=== PATIENT | female | born 1960 | race Caucasian/White ===

== ENCOUNTER 2017-05-12 01:30 | Emergency (ER) | payer SELFPAY ==
[~2017-05-12] VITALS: Ht 167.6 cm; Wt 72.6 kg
--- NOTE | ~2017-05-12 | CT16 ---
[facility] A Service [facility] RADIOLOGY TEXT RESULTS PATIENT: MARGA SY LOCATION: SED : 64 UNIT #: [id number] AGE: [address]: Edgar Stacy MD SEX: F ORDER DR: [id number] [address] [id number] [id number] MR#: [id number] Acc #: [id number] NAME: MARGA SY. : 1960 SEX: F STUDY DATE/TIME: 05/12/2017 2:54 UNIT: SED ROOM: STUDY DESCRIPTION: CT Angio Chest for PE Attending Physician: Edgar Stacy M.D. Ordering Physician: Edgar Stacy M.D. Primary Care Physician: Shun Wright Aprn MEDICAL IMAGING REPORT This report is preliminary unless electronic signature is present. EXAMINATION CTA chest with contrast, pulmonary embolism protocol. DATE 05/12/2017 HISTORY Central chest pain radiating to the back, worse with deep inspiration. Symptoms have been present for 3 days. COMPARISON AP portable chest, 06/15/2016. CTA chest, 03/22/2011. PROCEDURE 2 mm axial images through the chest after intravenous contrast administration. 3-D coronal MIP reformatted images were obtained. This CT exam was performed with one or more of the following radiation dose reduction techniques: automatic exposure control, adjustment of mA and/or kV according to patient size, and iterative reconstruction. FINDINGS No pulmonary embolism. No thoracic aortic aneurysm or aortic dissection. No pathologic adenopathy. No pericardial effusion. No pleural effusion. Mild centrilobular emphysema. No lung consolidation. No acute osseous abnormality. IMPRESSION 1. No acute chest findings. No pulmonary embolism. 2. Mild centrilobular emphysema. Dictated by... Lauren Johnson M.D. [facility] A Service [facility] RADIOLOGY TEXT RESULTS PATIENT: MARGA SY LOCATION: SED : 64 UNIT #: [id number] AGE: [address]: Edgar Stacy MD SEX: F ORDER DR: THIS IS AN ELECTRONICALLY VERIFIED REPORT Lauren Johnson M.D. at 05/12/2017 9:55 PM Jett TD: 05/12/2017 07:06 JOB #: [id number] MEDICAL IMAGING REPORT Page 1 of 1
--- NOTE | ~2017-05-12 | EKG ---
PATIENT: MARGA SY UNIT #: [id number] Ventricular Rate: 69 BPM Atrial Rate: 69 BPM P-R Interval: 140 ms QRS Duration: 76 ms Q-T Interval: 394 ms QTC Calculation(Bezet): 422 ms P Eugene: 15 degrees Calculated R Eugene: 42 degrees Calculated T Eugene: 7 degrees Diagnosis Line: Normal sinus rhythm Diagnosis Line: Normal ECG Diagnosis Line: When compared with ECG of 15-JUN-2016 00:14, Diagnosis Line: Premature ventricular complexes are no longer Diagnosis Line: Present Diagnosis Line: Confirmed by MEL SIMEON MD ([id number]) on Diagnosis Line: 05/12/2017 2:15:21 PM INTERPRETING MD: BLANCO PENA
[~2017-05-12 01:30] MED LIST: ACID REFLUX PILL; ARTHRITIS MED; ASPIRIN325 M1 PO; ASPIRIN81 M1 PO; ASPIRIN81 M2 PO; AUGMENTIN PO; AUGMENTIN875 MG PO; AURALGAN OTIC S14 ML AU; AZITHROMYCIN250 MG; BACTRIM DS TABL1 TA1 PO; BACTRIM DS TABL1 TA2 PO; CELEBREX100 MG PO; CHEWABLE ASPIRI81 MG PO; CIPRO HC OTIC S10 ML OT; CIPRO PO; CIPRODEX OTIC7.5 ML OT; COMPAZINE10 MG PO; CORTISPORIN-TC10 M1 AU; DICLOFENAC PO; DICLOXAXILLIN250 MG PO; EAR DROPS15 M2 OT; EXCEDRIN MIGRAI1 TA1 PO; FIORICET W/CODE1 CAP PO; FIORINAL CAPSUL1 CAP PO; FISH OIL 1,0001 CA2 PO; FISH OIL 10001000 MG PO; FISH OIL300 MG; FISH OIL500 MG PO; FLEXEPAX COMBO1 EACH PO; FLEXERIL10 MG PO; HYDROCORTISONE30 G2 TOP; IBUPROFEN200 M1 PO; IBUPROFEN400 MG; KEFLEX PO; KEFLEX500 MG PO; LORTAB 5/500 TA1 TA1 PO; MULTI-DAY VITAM1 TAB PO; MULTIVITAMIN1 UDCAP PO; NEOMYCIN AU; NICOTINE P1 PATCH .1 TD; NORFLEX100 M1 DOB; NORFLEX100 M1 PO; PEN-VEE K PO; PERCOCET 5-3251 TAB PO; PHENERGAN PO; PHENERGAN W/CO120 ML PO; PHENERGAN25 MG PO; PREDNISONE PO; PREVACID PO; SIMVASTATIN20 MG PO; STOOL SOFTENER1 EACH PO; TASPRIN325 MG; TYLENOL EXTRA500 M1 PO; TYLENOL325 M1 PO; ULTRAM PO; VIBRAMYCIN100 M1 PO; VICODIN 5/1 TAB 5/50 PO; VOLTAREN50 MG PO; VOLTAREN75 MG PO; ZOFRAN ODT4 MG PO; ZYRTEC10 M2 PO; [UNRECOGNIZED DRUG - OTHER] AU
[2017-05-12] MEDS ORDERED: NEURONTIN PO (01:42)
[2017-05-12 02:21] LABS: BASOPHIL# 0.1 X10e3 (0-0.3); BASOPHIL% 1.3 % (0-2.5); EOSINOPHIL# 0.5 X10e3 (0-0.7); HEMOGLOBIN 12.3 gm/dL (12.0-16.0); LYMPHOCYTE% 33.9 % (17.0-45.0); MEAN CELL VOLUME 89.1 FL (83-96); MEAN CORPUSCULAR HEMOGLOBIN 29.7 PG (28-34); MEAN CORPUSCULAR HGB CONC 33.4 g/dL (30-36); MEAN PLATELET VOLUME 7.9 FL (6.5-11.5); MONOCYTE# 0.7 X10e3 (0-1.0); MONOCYTE% 7.9 % (3.0-12.0); NEUTROPHIL# 4.5 X10e3 (1.5-7.1); NEUTROPHIL% 50.9 % (40-75); PLATELET COUNT 257 X10e3 (140-420); RED BLOOD COUNT 4.15 X10e (3.90-5.30); RED CELL DISTRIBUTION WIDTH 14.6 % (11.0-15.5); WHITE BLOOD COUNT 8.8 X10e3 (4.0-10.5)
[2017-05-12 02:22] LABS: DIFF IND NO
[2017-05-12 02:26] LABS: INR 1.1; PROTHROMBIN TIME (PATIENT) 12.8 SECONDS (9.5-12.4)
[2017-05-12 02:33] LABS: PARTIAL THROMBOPLASTIN TIME 28.6 SECONDS (25.6-38.1)
[2017-05-12 02:34] LABS: ALBUMIN SERUM 4.2 g/dL (3.5-5.0); AMPHETAMINE NEG (NEG); BARBITURATES NEG (NEG); BENZODIAZEPINES NEG (NEG); BILIRUBIN,TOTAL 0.4 mg/dL (0.2-2.0); BUN/CREATININE RATIO 18.33; CALCIUM SERUM 8.6 mg/dL (8.4-10.2); COCAINE NEG (NEG); CREATININE SERUM 0.6 mg/dL (0.6-1.4); GLOM FILT RATE Estimated 102.6 mL/min (>60); MARIJUANA NEG (NEG); OPIATES NEG (NEG); POTASSIUM 3.5 mmol/L (3.5-5.1); PROTEIN TOTAL SERUM 7.9 g/dL (6.0-8.3); TRICYCLIC ANTIDEPRESSANTS NEG (NEG); U METHADONE NEG (NEG)
[2017-05-12 03:12] LABS: POC - CKMB <1.0 ng/mL (0.0-7.9); POC - TROPONIN <0.05 ng/mL (<=0.05)
== END 2017-05-12 04:52 | disposition home or self-care (01) ==
LOC: SED 01:30
DX: M94.0 Chondrocostal junction syndrome [Tietze] (principal); K21.9 Gastro-esophageal reflux disease without esophagitis; F17.200 Nicotine dependence, unspecified, uncomplicated; Z79.899 Other long term (current) drug therapy; Z88.8 Allergy status to other drugs, medicaments and biological substances; Z88.5 Allergy status to narcotic agent; Z88.6 Allergy status to analgesic agent
CPT/HCPCS: 71275; 80053; 80307; 82553; 84484; 85025; 85610; 85730; 93005; 99285; J2270; Q9967